=== PATIENT | male | born 1990 | race Caucasian/White ===

== ENCOUNTER 2017-04-08 19:33 | Emergency (ER) | payer BC, OTHER ==
[2017-04-08 19:38] VITALS: BP 100/65; PULSE 93; RESP 18; TEMP 97.7
[2017-04-08] MEDS ORDERED: KETOROLAC 30 MG/ML 1 ML VIAL IM STA (19:52)
[2017-04-08] MEDS ORDERED: ORPHENADRINE 30 MG/ML 2 ML VIAL IM STA (19:52)
--- NOTE | 2017-04-08 19:56 | ED ---
Back Pain HPI - General Chief Complaint: Back Pain/Injury Stated Complaint: Back Pain Time Seen by Provider: 04/08/17 19:48 Source: patient, RN notes reviewed Limitations: no limitations - History of Present Illness Initial Comments: This is a 26-year-old male who presents to the emergency department with chief component of acute low back pain. Patient states that he has been working out and has had a little bit of low back pain for the past 2 weeks. He states that last night he bent over to pet his dog and had a sudden sharp pain in his low back that radiated down both legs and both arms. Patient states that he is no longer experiencing the radiation of pain but does have midline low back pain that is worse with movement. He states he has trouble getting up due to the pain. He states he has been taking Aleve. He does state that he has a history of low back pain. Denies saddle paresthesias or loss of bladder or bowel function. Denies IV drug use. Denies numbness or tingling. Denies any other injuries or trauma. - Related Data Previous Rx's Medication Instructions Recorded Cyclobenzaprine [Flexeril] 10 mg PO TID #12 tab 04/08/17 Allergies Allergy/AdvReac Type Severity Reaction Status Date / Time No Known Allergies Allergy Verified 04/08/17 19:38 Review of Systems ROS Statement: Those systems with pertinent positive or pertinent negative responses have been documented in the HPI. ROS Other: All systems not noted in ROS Statement are negative. Past Medical History Past Medical History: No Reported History Additional Past Medical History / Comment(s): back pain History of Any Multi-Drug Resistant Organisms: None Reported Past Surgical History: No Surgical Hx Reported Past Psychological History: Depression Smoking Status: Current every day smoker Past Alcohol Use History: None Reported, Occasional Past Drug Use History: None Reported General Exam - General Exam Comments Initial Comments: General: Awake and alert, well-developed; in no apparent distress. HEENT: Head atraumatic, normocephalic. Pupils are equal, round and reactive to light. Extraocular movements intact. Oropharynx moist without erythema or exudate. Neck: Supple. Normal ROM. No tenderness. Cardiovascular: Regular rate and rhythm. No murmurs, rubs or gallops. Chest symmetrical. Respiratory: Lungs clear to auscultation bilaterally. No wheezes, rales or rhonchi. Normal respiratory effort with no use of accessory muscles. Musculoskeletal: Normal ROM, no tenderness bilateral upper and lower extremities. Patient has normal range of motion of the spine. No bony point vertebral tenderness or SI joint tenderness. No tenderness on palpation of paraspinal muscles. Low back pain is elicited with left leg raise, more so than right leg raise. Sensation is intact. Pedal pulses are 2+ equal and palpable bilaterally. Ambulating normally. Skin: [place], warm and dry without rashes or lesions. Neurological: Alert and oriented x3. CN II-XII grossly intact. Speech is fluent and answers are appropriate. No focal neuro deficits. Psychiatric: Normal mood and affect. No overt signs of depression or anxiety noted. Limitations: no limitations Course Vital Signs 04/08/17 19:35 Temperature 97.7 F Pulse Rate 93 Respiratory 18 Rate Blood Pressure 100/65 O2 Sat by Pulse 100 Oximetry Medical Decision Making - Medical Decision Making This is a 26-year-old male who presents to the emergency department chief complaint of acute low back pain. He denies saddle paresthesias or loss of bladder or bowel function. Denies IV drug use. Denies numbness or tingling or radiation of pain down the legs. X-ray lumbar spine reveals no acute abnormalities. Likely suffering from a strain of the lumbar musculature. Patient will be discharged home with recommendation to use ice, anti- inflammatories and muscle relaxers. Patient is in agreement with plan and voices understanding. All questions were answered. - Radiology Data Radiology results: report reviewed X-ray lumbar spine impression: No acute fracture or dislocation is seen in the lumbar spine. Disposition Clinical Impression: Strain of lumbar region Disposition: HOME SELF-CARE Condition: Good Instructions: Low Back Strain (ED), Lower Back Exercises (ED) Additional Instructions: Please take medications as prescribed. Please follow up with primary care provider within 1-2 days. Return to emergency department if symptoms should worsen or any concerns arise. Prescriptions: Cyclobenzaprine [Flexeril] 10 mg PO TID #12 tab Referrals: Lorenza Madrigal DO [Primary Care Provider] - 1-2 days Time of Disposition: 20:26
--- NOTE | 2017-04-08 20:18 | XR ---
EXAMINATION TYPE: XR lumbar spine 2 or 3V DATE OF EXAM: 04/08/2017 CLINICAL HISTORY: pain TECHNIQUE: Three views of the lumbar spine are submitted. COMPARISON: None. FINDINGS: There are 5 lumbar type vertebral bodies identified. The lumbar spine shows satisfactory alignment w ithout evidence of acute fracture or dislocation. Vertebral body heights are within normal limits. Disc spaces are within normal limits. The overlying soft tissue appears unremarkable. IMPRESSION: No acute fracture or dislocation is seen in the lumbar spine. ICD 10 NO FRACTURE, INITIAL EVALUATION
== END 2017-04-08 20:37 | disposition home or self-care (01) ==
LOC: EC 19:33
DX: S39.012A Strain of muscle, fascia and tendon of lower back, initial encounter (principal); F17.200 Nicotine dependence, unspecified, uncomplicated; X50.1XXA Overexertion from prolonged static or awkward postures, initial encounter; Y93.89 Activity, other specified; Y92.009 Unspecified place in unspecified non-institutional (private) residence as the place of occurrence of the external cause
CPT/HCPCS: 99283; 96372 ×2; 72100; J2360; J1885

== ENCOUNTER 2019-10-28 22:21 | Emergency (ER) | payer BC, OTHER ==
[2019-10-28] MEDS ORDERED: IBUPROFEN 600 MG TAB PO STA (22:58)
[2019-10-28] MEDS ORDERED: BACITRACIN OINT 1 EACH PACKET TOPICAL ONE (22:59)
[2019-10-28] MEDS ORDERED: LIDOCAINE 1% INJ 10MG/ML (20 ML MDV) SQ ONE (22:59)
[2019-10-28] MEDS ORDERED: WATER FOR IRRIG, STERILE 1,000 ML BTL IRRIGATION ONE (22:59)
--- NOTE | 2019-10-29 00:04 | ED ---
Wound/Laceration HPI - General Chief Complaint: Wound/Laceration Stated Complaint: R Hand Injury-Poss Stitches Time Seen by Provider: 10/28/19 22:55 Source: patient Mode of arrival: ambulatory Limitations: no limitations - History of Present Illness Initial Comments: 28-year-old male patient presents with a 2 cm laceration to the palmar surface at the base of the right thumb. Injury sustained when a clean kitchen knife slipped from his hand and he attempted to grab it by the blade. Bleeding controlled upon arrival; patient reports his tetanus is up to date. Complains of minimal pain. Denies difficulty with range of motion intact. Denies numbness or tingling to the hand. Patient denies any headache, neck pain, back pain, chest pain, shortness of breath, dizziness, weakness, abdominal pain, nausea, vomiting, or difficulties with bowel movements or urination. He - Related Data Previous Rx's Medication Instructions Recorded Cyclobenzaprine [Flexeril] 10 mg PO TID #12 tab 04/08/17 Allergies Allergy/AdvReac Type Severity Reaction Status Date / Time No Known Allergies Allergy Verified 10/28/19 22:45 Review of Systems ROS Statement: Those systems with pertinent positive or pertinent negative responses have been documented in the HPI. ROS Other: All systems not noted in ROS Statement are negative. Past Medical History Past Medical History: No Reported History Additional Past Medical History / Comment(s): back pain History of Any Multi-Drug Resistant Organisms: None Reported Past Surgical History: No Surgical Hx Reported Past Psychological History: Depression Smoking Status: Current every day smoker Past Alcohol Use History: Occasional Past Drug Use History: Marijuana General Exam Limitations: no limitations General appearance: alert, in no apparent distress, other (this is a well- developed well-nourished male in no acute distress. Vital signs upon arrival temperature 98.5 Fahrenheit, pulse 85, respirations 15, blood pressure 123/76, pulse ox 100% on room air.) Head exam: Present: atraumatic, normocephalic, normal inspection Eye exam: Present: normal appearance. Absent: scleral icterus, conjunctival injection, periorbital swelling Respiratory exam: Present: normal lung sounds bilaterally. Absent: respiratory distress, wheezes, rales, rhonchi, stridor Cardiovascular Exam: Present: regular rate, normal rhythm, normal heart sounds. Absent: systolic murmur, diastolic murmur, rubs, gallop, clicks GI/Abdominal exam: Present: soft, normal bowel sounds. Absent: distended, tenderness, guarding, rebound, rigid Extremities exam: Present: normal inspection, full ROM, normal capillary refill, other (Skin to the right hand and arm is pink, warm, dry. Cap refills less than 3 seconds. Radial pulses 2+ and equal bilaterally.). Absent: tenderness, pedal edema, joint swelling, calf tenderness Neurological exam: Present: alert, oriented X3, CN II-XII intact Psychiatric exam: Present: normal affect, normal mood Skin exam: Present: warm, dry, normal color. Absent: rash Expanded Type of lesion: Present: laceration, other (2 cm laceration to the palmar surface at the base of the right thumb. Cap refill less than 2 seconds, skin warm, pink and dry, radial pulses +2.) Course Vital Signs 10/28/19 10/29/19 22:41 00:25 Temperature 98.5 F 98.6 F Pulse Rate 85 64 Respiratory 15 18 Rate Blood Pressure 123/76 128/80 O2 Sat by Pulse 100 97 Oximetry Procedures - Laceration Laceration #1 Consent Obtained: verbal consent Indication: laceration Site: hand (Right) Size (cm): 2 Description: linear Depth: simple, single layer Anesthetic Used: lidocaine 1% Anesthesia Technique: local infiltration Amount (mls): 4 Pre-repair: irrigated extensively Type of Sutures: nylon Size of Sutures: 5-0 Number of Sutures: 4 Technique: simple, interrupted Patient Tolerated Procedure: well, no complications Medical Decision Making - Medical Decision Making 28-year-old male presented to the emergency department today with 2 cm laceration to the palmar surface at the base of the right thumb. Accidental injury sustained with a clean kitchen knife. Range of motion intact. Cap refill less than 3 seconds. Skin warm, pink, dry; no numbness or tingling. Bleeding controlled prior to arrival. Wound cleansed and irrigated, properly anesthetized, and 4 sutures placed. Bacitracin dressing applied, wound care discussed including signs and symptoms of infection as well as dressing changes; patient encouraged to not submerge affected hand. Tylenol and Motrin discussed for minor discomfort. Instructed to have sutures removed in 7 days. Follow-up with primary care doctor for wound recheck in 1-2 days. Patient verbalizes understanding and agrees with this plan. Disposition Clinical Impression: Laceration of right hand Disposition: HOME SELF-CARE Condition: Good Instructions (If sedation given, give patient instructions): Care For Your Stitches (ED), Laceration (ED) Additional Instructions: Keep wound clean and dry. Cleanse twice daily with warm water and antibacterial soap. Monitor for signs or symptoms of infection including but not limited to redness, swelling, drainage of pus, fever, or chills. Keep covered when in public, open to air at home. Do not submerge hand in water including sinks, tubs, Lakes, or pools. Return to have the stitches removed in 7 days. Follow- up with your primary care physician for recheck in 1-2 days. Return for any other new, worsening, or concerning symptoms per Is patient prescribed a controlled substance at d/c from ED?: No Referrals: None,Stated [Primary Care Provider] - 1-2 days Time of Disposition: 00:03
[2019-10-29 00:38] VITALS: BP 128/80; PULSE 64; RESP 18; TEMP 98.6
== END 2019-10-29 00:27 | disposition home or self-care (01) ==
LOC: EC 22:21
DX: S61.411A Laceration without foreign body of right hand, initial encounter (principal); F17.200 Nicotine dependence, unspecified, uncomplicated; W26.0XXA Contact with knife, initial encounter; Y93.89 Activity, other specified
CPT/HCPCS: 99282; 12001; J2001

== ENCOUNTER 2020-07-25 07:56 | Emergency (ER) | payer BC ==
[2020-07-25 07:59] VITALS: BP 114/76; PULSE 76; RESP 16; TEMP 97.8
--- NOTE | 2020-07-25 08:23 | ED ---
Upper Extremity HPI - General Chief Complaint: Extremity Injury, Upper Stated Complaint: Rt Hand Injury Time Seen by Provider: 07/25/20 08:00 Source: patient, RN notes reviewed Mode of arrival: ambulatory Limitations: no limitations - History of Present Illness Initial Comments: 29-year-old male presents emergency Department chief complaint of right hand injury. Patient states he punched a wall prior arrival. Patient states there is abrasion, pain with the fourth and fifth metacarpal region. Patient is right-hand dominant no prior fractures. Patient states is up-to-date on his tetanus. - Related Data Previous Rx's Medication Instructions Recorded Cyclobenzaprine [Flexeril] 10 mg PO TID #12 tab 04/08/17 Cephalexin [Keflex] 500 mg PO Q6HR #28 cap 07/25/20 Allergies Allergy/AdvReac Type Severity Reaction Status Date / Time No Known Allergies Allergy Verified 07/25/20 07:56 Review of Systems ROS Statement: Those systems with pertinent positive or pertinent negative responses have been documented in the HPI. ROS Other: All systems not noted in ROS Statement are negative. Past Medical History Past Medical History: No Reported History Additional Past Medical History / Comment(s): back pain History of Any Multi-Drug Resistant Organisms: None Reported Past Surgical History: No Surgical Hx Reported Past Psychological History: Depression Smoking Status: Current every day smoker Past Alcohol Use History: Occasional Past Drug Use History: Marijuana General Exam Limitations: no limitations General appearance: alert, in no apparent distress Respiratory exam: Present: normal lung sounds bilaterally. Absent: respiratory distress, wheezes, rales, rhonchi, stridor Cardiovascular Exam: Present: regular rate, normal rhythm, normal heart sounds. Absent: systolic murmur, diastolic murmur, rubs, gallop, clicks Extremities exam: Present: other (Right hand there is an abrasion over the third MCP region, tenderness over the fourth and fifth metacarpal region patient has slight deformity, full range of motion neurovascular intact no tenderness proximal to the hand) Course Vital Signs 07/25/20 07:57 Temperature 97.8 F Pulse Rate 76 Respiratory 16 Rate Blood Pressure 114/76 O2 Sat by Pulse 100 Oximetry Procedures - Orthopedic Splinting/Casting Injury #1 Side: right Upper Extremity Injury Location: short arm, hand Upper Extremity Immobilizer: ulnar gutter, synthetic pre-padded splint Medical Decision Making - Medical Decision Making 29-year-old presented for right hand injury patient was splinted and will follow-up with orthopedics tetanus is updated patient was placed on antibiotics as he has remote opening to the skin. This is not from the fracture itself. Patient follow-up with orthopedics today or tomorrow return for any worsening change in symptoms. Disposition Clinical Impression: Displaced fracture of neck of right fifth metacarpal bone Disposition: HOME SELF-CARE Condition: Stable Instructions (If sedation given, give patient instructions): Hand Fracture (ED) Additional Instructions: Please return to the Emergency Department if symptoms worsen or any other concerns. Prescriptions: Cephalexin [Keflex] 500 mg PO Q6HR #28 cap Is patient prescribed a controlled substance at d/c from ED?: No Referrals: None,Stated [Primary Care Provider] - 1-2 days Caleb Barnhart DO [Doctor of Osteopathic Medicine] - 1-2 days Time of Disposition: 09:03
[2020-07-25] MEDS ORDERED: BACITRACIN OINT 1 EACH PACKET TOPICAL ONE (08:49)
[2020-07-25] MEDS ORDERED: DIPH,PERTUS(ACELL)TETVAC-LF 0.5 ML VIAL IM ONE (08:55)
--- NOTE | 2020-07-25 09:09 | XR ---
Right hand HISTORY: Trauma and pain 3 views the right hand There is a mid diaphyseal fifth metacarpal fracture with volar angulation, mild displacement. There i s no dislocation. There is associated soft tissue swelling. IMPRESSION: Boxer's fracture
== END 2020-07-25 09:32 | disposition home or self-care (01) ==
LOC: EC 07:56
DX: S62.336A Displaced fracture of neck of fifth metacarpal bone, right hand, initial encounter for closed fracture (principal); F17.200 Nicotine dependence, unspecified, uncomplicated; W22.09XA Striking against other stationary object, initial encounter
CPT/HCPCS: 90715

== ENCOUNTER 2023-11-11 14:58 | Emergency (ER) | payer BC ==
[2023-11-11 15:03] VITALS: TEMP 98
--- NOTE | 2023-11-11 15:39 | ED ---
Upper Extremity HPI - General Chief Complaint: Extremity Injury, Upper Stated Complaint: R Hand Injury Time Seen by Provider: 11/11/23 15:08 Source: patient, RN notes reviewed Mode of arrival: ambulatory Limitations: no limitations - History of Present Illness Initial Comments: 33-year male presented to ER with a chief complaint of laceration. Patient was attempting to remove a large glass mirror from his parents basement. He states when attempting to lift the mirror the mirror broke in half cutting his left hand. No blood thinner use. Tetanus status unknown. Patient denies any limited range of motion, paresthesias or other injuries. Bleeding controlled with compression. No other complaints. - Related Data Previous Rx's Medication Instructions Recorded Cyclobenzaprine [Flexeril] 10 mg PO TID #12 tab 04/08/17 Cephalexin [Keflex] 500 mg PO Q6HR #28 cap 07/25/20 Allergies Allergy/AdvReac Type Severity Reaction Status Date / Time No Known Allergies Allergy Verified 11/11/23 15:03 Review of Systems ROS Statement: Those systems with pertinent positive or pertinent negative responses have been documented in the HPI. ROS Other: All systems not noted in ROS Statement are negative. Past Medical History Past Medical History: No Reported History Additional Past Medical History / Comment(s): back pain History of Any Multi-Drug Resistant Organisms: None Reported Past Surgical History: No Surgical Hx Reported Past Psychological History: Depression Smoking Status: Current every day smoker Past Alcohol Use History: Occasional Past Drug Use History: Marijuana General Exam Limitations: no limitations General appearance: alert, in no apparent distress Respiratory exam: Present: normal lung sounds bilaterally. Absent: respiratory distress, wheezes, rales, rhonchi, stridor Cardiovascular Exam: Present: regular rate, normal rhythm, normal heart sounds. Absent: systolic murmur, diastolic murmur, rubs, gallop, clicks Extremities exam: Present: normal inspection, full ROM, normal capillary refill, other (2 cm flap laceration to right palm. minimal active bleeding. Patient has full active range of motion of all digits. Denies paresthesias. Sensation intact. 2+ right radial pulse.). Absent: tenderness, pedal edema, joint swelling, calf tenderness Neurological exam: Present: alert, oriented X3, CN II-XII intact Skin exam: Present: warm, dry, intact, normal color. Absent: rash Course Vital Signs 11/11/23 11/11/23 15:01 16:30 Temperature 98 F 98 F Pulse Rate 77 69 Respiratory 18 16 Rate Blood Pressure 121/89 135/81 O2 Sat by Pulse 99 99 Oximetry Procedures - Laceration Laceration #1 Consent Obtained: verbal consent Indication: laceration Site: hand Size (cm): 2 Description: linear Depth: simple, single layer Anesthetic Used: lidocaine 1%, without epi Anesthesia Technique: local infiltration Amount (mls): 2 Pre-repair: wound explored, irrigated extensively, deep structures intact Type of Sutures: nylon Size of Sutures: 4-0 Number of Sutures: 3 Technique: simple, interrupted Patient Tolerated Procedure: well Medical Decision Making - Medical Decision Making Was pt. sent in by a medical professional or institution (, PA, IGNITER ASSEMBLER, urgent care, hospital, or halfway...) When possible be specific @ -No Did you speak to anyone other than the patient for history (EMS, parent, family, police, friend...)? What history was obtained from this source @ -No Did you review nursing and triage notes (agree or disagree)? Why? @ -I reviewed and agree with nursing and triage notes Were old charts reviewed (outside hosp., previous admission, EMS record, old EKG, old radiological studies, urgent care reports/EKG's, halfway records)? Report findings @ -No old charts were reviewed Differential Diagnosis (chest pain, altered mental status, abdominal pain women, abdominal pain men, vaginal bleeding, weakness, fever, dyspnea, syncope, headache, dizziness, GI bleed, back pain, seizure, CVA, palpatations, mental health, musculoskeletal)? @ -Laceration, abrasion, contusion, avulsion, foreign body this list is not meant to be all-inclusive EKG interpreted by me (3pts min.). @ -None X-rays interpreted by me (1pt min.). @ -None done CT interpreted by me (1pt min.). @ -None done U/S interpreted by me (1pt. min.). @ -None done What testing was considered but not performed or refused? (CT, X-rays, U/S, labs)? Why? @ -X-ray considered but not obtained as patient has no focal tenderness co ncerning of foreign body. What meds were considered but not given or refused? Why? @ -None Did you discuss the management of the patient with other professionals (professionals i.e. , PA, IGNITER ASSEMBLER, lab, RT, psych nurse, rn social services, crowning inspector, teacher, commanding officer motorized squad, case filler)? Give summary @ -No Was smoking cessation discussed for >3mins.? @ -No Was critical care preformed (if so, how long)? @ -No Were there social determinants of health that impacted care today? How? (Homelessness, low income, unemployed, alcoholism, drug addiction, transportation, low edu. Level, literacy, decrease access to med. care, custodial, rehab)? @ -No Was there de-escalation of care discussed even if they declined (Discuss DNR or withdrawal of care, Hospice)? DNR status @ -No What co-morbidities impacted this encounter? (DM, HTN, Smoking, COPD, CAD, Cancer, CVA, ARF, Chemo, Hep., AIDS, mental health diagnosis, sleep apnea, morbid obesity)? @ -None Was patient admitted / discharged? Hospital course, mention meds given and route, prescriptions, significant lab abnormalities, going to OR and other pertinent info. @ -Discharge. 33-year-old male presented the ER with a chief complaint of a right hand injury. History and physical exam completed. Vitals within normal limits. Right upper extremity neurovascular intact. Exam remarkable for a 2 cm flap laceration to right palm at the base of the fifth metatarsal. Minimal active bleeding. Patient has full active range of motion. Tetanus updated. X- rays considered but not obtained as there is no focal tenderness concerning of a foreign body. Wound closed, see note above. I advise removal in 10 to 14 days. Suture care and strict return parameters discussed. Patient discharged in stable condition with follow-up to PCP. Patient verbally expressed understanding agree with care plan. Case discussed with ED attending, Dr. Jacinto. Undiagnosed new problem with uncertain prognosis? @ -No Drug Therapy requiring intensive monitoring for toxicity (Heparin, Nitro, Insulin, Cardizem)? @ -No Were any procedures done? @ -Yes, laceration repair Diagnosis/symptom? @ -Laceration Acute, or Chronic, or Acute on Chronic? @ -Acute Uncomplicated (without systemic symptoms) or Complicated (systemic symptoms)? @ -Uncomplicated Side effects of treatment? @ -No Exacerbation, Progression, or Severe Exacerbation? @ -No Poses a threat to life or bodily function? How? (Chest pain, [place], PA, pneumonia, PE, COPD, DKA, ARF, appy, cholecystitis, CVA, Diverticulitis, Homicidal, Suicidal, threat to staff... and all critical care pts) @ -No Disposition Clinical Impression: Laceration Disposition: HOME SELF-CARE Condition: Stable Instructions (If sedation given, give patient instructions): Care For Your Stitches (DC) Additional Instructions: Have sutures removed in 10 to 14 days. Monitor for signs of infection including surrounding redness, swelling or pearly drainage. Return to the ER for any new or worsening concerns. Is patient prescribed a controlled substance at d/c from ED?: No Referrals: None,Stated [Primary Care Provider] - 1-2 days Forms: Area PCPs Time of Disposition: 16:17
[2023-11-11] MEDS: LIDOCAINE 1% INJ 10MG/ML (20 ML MDV) SQ ONE (15:54)
[2023-11-11] MEDS: DIPH,PERTUS(ACELL)TETVAC-LF 0.5 ML VIAL IM ONE (15:54)
[2023-11-11 16:33] VITALS: BP 135/81; PULSE 69; RESP 16
== END 2023-11-11 16:33 | disposition home or self-care (01) ==
LOC: EC 14:58
CPT/HCPCS: 12001; 90471; 90715; 99282